=== PATIENT | male | born 1940 | race Caucasian/White ===

== ENCOUNTER 2016-05-08 15:24 | Emergency (ER) | payer MEDICARE ==
[2016-05-08] MEDS ORDERED: HYDROcodone/Acetaminophen 5/325 mg Tablet ONE (15:55)
[2016-05-08 16:38] LABS: PTT 42.8 SEC (22.9-36.1); Prothrombin Time 32.1 SEC (12.0-14.7)
--- NOTE | 2016-05-08 16:40 | RAD ---
AP AND OBLIQUE VIEWS LEFT RIBS PA RADIOGRAPH OF THE CHEST 05/08/16 HISTORY: 76-year-old with left rib pain. FINDINGS/IMPRESSION: AP and oblique views left ribs demonstrate the lungs to be well aerated. No evidence of active intra thoracic disease seen. Left rib detail radiographs demonstrate no evidence of left rib fractures, subluxations, or bony les ions. POS: [facility]
== END 2016-05-08 17:08 | disposition home or self-care (01) ==
LOC: NAV ERS 15:24
DX: R07.89 Other chest pain (principal); D68.9 Coagulation defect, unspecified; I48.91 Unspecified atrial fibrillation; I10 Essential (primary) hypertension; J44.9 Chronic obstructive pulmonary disease, unspecified; F17.210 Nicotine dependence, cigarettes, uncomplicated; Z79.899 Other long term (current) drug therapy
CPT/HCPCS: 85610; 85730